=== PATIENT | male | born 1970 | race Caucasian/White ===

== ENCOUNTER 2016-07-30 22:36 | Emergency (ER) | payer BC ==
[2016-07-30 22:43] VITALS: BP 148/100; PULSE 97; TEMP 98.2; BMI 25.8
--- NOTE | 2016-07-30 22:44 | PDOC ---
History of Present Illness - General Chief Complaint: Pain, Acute Stated Complaint: SWELLING/PAIN TO RIGHT ANKLE Time Seen by Provider: 07/30/16 22:39 - History of Present Illness Initial Comments: This otherwise healthy 46-year-old man presents with a few hour history of right ankle pain. Patient has history of trimalleolar fracture in that ankle several years ago. He denies subsequent pain or swelling until today. He fell asleep early this evening on couch with his feet overhanging the end of the couch. When he awakened a few hours later, he noted swelling in the lateral aspect of the right ankle with pain on weightbearing. He denies any new trauma or overuse involving the ankle. There is been no change in shoes. The patient has no history of gout or other inflammatory arthritis. No other acute joint pain or swelling. Patient has had no posterior calf/popliteal/thigh swelling or pain The patient states that he took 3 [id number] ibuprofen tablets without change in the pain and presented here Past History - Past Medical History Allergies/Adverse Reactions: Allergies Allergy/AdvReac Type Severity Reaction Status Date / Time No Known Allergies Allergy Verified 07/30/16 22:38 Home Medications: Ambulatory Orders Diclofenac Sodium [Voltaren -] 75 mg PO BID PRN #10 tablet. 07/30/16 Review of Systems - Review of Systems Able to Perform ROS?: Yes Comments:: 12 point review of systems is negative except for what is noted in the history of present illness *Physical Exam - Physical Exam Comments: GENERAL: The patient is awake, alert, and fully oriented, in no acute distress. Vital signs as noted. EXTREMITIES: Right lower extremitymild edema/ moderate tenderness lateral malleolus of the ankle without deformity or ecchymosis No ligamentous instability of the ankle; no significant medial edema or tenderness Foot warm and dry with excellent capillary refill; no tenderness or edema of foot Remainder of the extremity exam is normal NEUROLOGICAL: Cranial nerves II through XII grossly intact. Normal speech, moving all 4 extremities equally PSYCH: Normal mood, normal affect. SKIN: Warm, Dry, normal turgor, no rashes or lesions noted. Progress Note - Progress Note Progress Note: Right ankle x-ray performed and preliminary x-ray reading by me : evidence of healed distal tibia as well as distal fibular fractures; there is also degenerative changes in the ankle joint; no evidence of acute fractures or dislocation Results discussed with the patient. No clear etiology for his pain although evidence of significant degenerative changes in the ankle joint. Scotty wrap and ankle stirrup splint applied. The patient will ice and elevate the ankle joint, especially icing the lateral malleolus area. Toradol 60 mg IM will be given now for his persistent pain. Diclofenac 75mg up to twice a day will be prescribed. Patient states that he has an orthopedist with whom he will follow up within the next several days. He should return to the emergency room or see his general medical doctor if he has worsening swelling/redness/pain in the ankle or foot *DC/Admit/Observation/Transfer Diagnosis at time of Disposition: Right ankle pain Qualifiers: Chronicity: acute Qualified Code(s): M25.571 - Pain in right ankle and joints of right foot - Discharge Dispostion Disposition: HOME Condition at time of disposition: Stable - Prescriptions Prescriptions: Diclofenac Sodium [Voltaren -] 75 mg PO BID PRN #10 tablet.dr LITTLE Reason: Pain - Patient Instructions Printed Discharge Instructions: DI for Ankle Pain Additional Instructions: ice/elevation of ankle for 2-3 days ankle splint or scotty during day for next 5 days diclofenac 75mg twice a day as needed for pain followup with your orthopedist within one week see your general doctor or return to ER if pain/swelling/redness worsens
[2016-07-30] MEDS ORDERED: KETOROLAC TROMETHAMINE 60 MG/2 ML VIAL IM ONE (23:42)
[2016-07-30] MEDS ORDERED: KETOROLAC TROMETHAMINE 60 MG/2 ML VIAL ONE (23:43)
== END 2016-07-30 23:45 | disposition home or self-care (01) ==
LOC: FER 22:36
PROC: 2W3SX1Z Immobilization of Right Foot using Splint (ICD-10-PCS; principal; 2016-07-30)
PROC: 3E0233Z Introduction of Anti-inflammatory into Muscle, Percutaneous Approach (ICD-10-PCS; 2016-07-30)
DX: M25.571 Pain in right ankle and joints of right foot (principal)
CPT/HCPCS: 73610-TC-RT; 99281-25